=== PATIENT | male | born 1985 ===

== ENCOUNTER 2017-09-15 08:31 | Emergency (ER) | payer BC ==
[2017-09-15] MEDS ORDERED: ONDANSETRON HCL IV 4 MG/2 ML VIAL IVP ONE (08:38)
[2017-09-15] MEDS ORDERED: 0.9 % SODIUM CHLORIDE 1,000 ML BAG IV ONE (08:38)
[2017-09-15] MEDS ORDERED: MORPHINE SULFATE 4MG/ML PREFILLED SYRINGE IVP ONE (08:38)
[2017-09-15] MEDS ORDERED: KETOROLAC 30 MG/ML VIAL IVP ONE (08:38)
--- NOTE | 2017-09-15 08:43 | Emergency Department Record ---
History of Present Illness - General Chief complaint: Flank Pain Stated complaint: POSS KIDNEY STONE Time Seen by Provider: 09/15/17 08:37 Source: Patient Mode of Arrival: Ambulatory Limitations: No limitations - History of Present Illness Initial comments: 32 yo male presents with right flank pain that started about 4am. The pain is sharp. He has associated nausea and vomiting. No definite blood in his urine. He reports a history about 7 years ago f a renal stone. No history of surgery. No fevers. No allergies. He has been recently healthy. MD Complaint: Other (right flank pain) -: Hour(s) (5) Location: Abdomen Radiation: R flank Severity: Moderate Quality: Aching, Sharp Consistency: Constant Improves with: None Worsens with: None Reports: Nausea/vomiting - Related Data Previous Rx's Medication Instructions Recorded Hydrocodone/Acetaminophen [Cabins 1 each PO Q6H #8 tablet 09/15/17 5-325 Tablet] Ondansetron [Zofran Odt] 4 mg PO Q8H #15 tab.rapdis 09/15/17 Allergies Allergy/AdvReac Type Severity Reaction Status Date / Time No Known Drug Allergies Allergy Verified 09/15/17 08:40 Review of Systems Constitutional: Denies: Chills, Fever, Malaise, Weakness Eyes: Denies: Eye discharge ENT: Denies: Congestion, Throat pain Respiratory: Denies: Cough Cardiovascular: Denies: Chest pain, Syncope Gastrointestinal: Reports: As per HPI, Abdominal pain, Nausea, Vomiting. Denies : Diarrhea Genitourinary: Denies: Dysuria, Hematuria, Incontinence, Retention Musculoskeletal: Reports: Back pain. Denies: Arthralgia, Neck pain Skin: Denies: Bruising, Change in color, Rash Neurological: Denies: Headache, Numbness, Weakness Psychiatric: Denies: Anxiety Hematological/Lymphatic: Denies: Blood Clots, Easy bleeding, Easy bruising, Swollen glands Physical Exam - General General Appearance: Alert, Oriented x3, Cooperative, No acute distress Limitations: No limitations - Head Head exam: Atraumatic, Normal inspection - Eye Eye exam: Normal appearance, PERRL Pupils: Normal accommodation - ENT ENT exam: Normal exam, Mucous membranes moist Ear exam: Normal external inspection Nasal Exam: Normal inspection Mouth exam: Normal external inspection - Neck Neck exam: Normal inspection, Full ROM. negative: Tenderness - Respiratory Respiratory exam: Normal lung sounds bilaterally. negative: Respiratory distress - Cardiovascular Cardiovascular Exam: Regular rate, Normal rhythm, Normal heart sounds - GI/Abdominal GI/Abdominal exam: Soft. negative: Tenderness - Rectal Rectal exam: Deferred - exam: Deferred - Extremities Extremities exam: Normal inspection, Full ROM, Normal capillary refill. negative: Pedal edema, Tenderness - Back Back exam: Reports: Normal inspection, Full ROM. Denies: CVA tenderness (R), CVA tenderness (L), Muscle spasm, Rash noted, Tenderness - Neurological Neurological exam: Alert, Normal gait, Oriented X3 - Psychiatric Psychiatric exam: Normal affect, Normal mood - Skin Skin exam: Dry, Intact, Normal color, Warm Course - Reevaluation(s) Reevaluation #1: CT scanner is on operational at this time. This was explained to the patient that he will be sent to B or CT but remain a [facility] patient. 09/15/17 08:42 09/15/17 09:31 The labs were reviewed. No acute changes on the CBC or the BMP. The UA demonstrates RBC's, otherwise negative. 09/15/17 10:[address] scan report was reviewed. The patient has a 4mm distal right ureteral stone at the UVJ. He has an incidental finding of appedicolith. I discussed the possible increased chance of a future appendicitis. We discussed the signs and symptoms of appendicitis. He is now a 0/10 pain scale. We discussed reasons to return to the ED for pain, nausea, fever or any new concerns regarding the renal stone. Medical Decision Making - Lab Data Result diagrams: 09/15/17 08:47 09/15/17 08:47 Disposition Disposition: Discharge Clinical Impression: Renal colic on right side, Appendicolith Disposition: Home, Self-Care Condition: (1) Good Instructions: Renal Colic (ED) Additional Instructions: Strain your urine today Return to the ED if you have uncontrolled pain, vomiting, or any new concerns No driving today after the pain medications As we discussed, you have a small stone in your appendix. If you ever developed abdominal pain, right lower abdominal pain, fever or any new concerns of appendicitis. Prescriptions: Hydrocodone/Acetaminophen [Cabins 5-325 Tablet] 1 each PO Q6H #8 tablet Ondansetron [Zofran Odt] 4 mg PO Q8H #15 tab.rapdis Forms: Patient Portal Access Time of Disposition: 11:01 Quality - Quality Measures Quality Measures: N/A - Blood Pressure Screening Does Patient Have Any of the Following: No Blood Pressure Classification: Normal BP Reading Systolic Measurement: 109 Diastolic Measurement: 76 Screening for High Blood Pressure: < Normal BP, F/U Not Required > [G8783]
[2017-09-15 09:03] LABS: URINE APPEARANCE CLEAR; URINE BILIRUBIN NEGATIVE (NEGATIVE); URINE BLOOD MODERATE (NEGATIVE); URINE COLOR YELLOW; URINE GLUCOSE (UA) NEGATIVE (NEGATIVE); URINE KETONE NEGATIVE (NEGATIVE); URINE LEUKOCYTE ESTERASE NEGATIVE (NEGATIVE); URINE NITRITE NEGATIVE (NEGATIVE); URINE PROTEIN NEGATIVE (NEGATIVE); URINE UROBILINOGEN 0.2 E.U./dL (0.20 - 1.00)
[2017-09-15 09:04] LABS: BASO % 0.2 % (0-6); EOS % 0.8 % (0-6); GRAN % 78.3 % (47-80); HEMATOCRIT 45.2 % (42.0-52.0); HEMOGLOBIN 15.6 gm/dl (14.0-18.0); LYMPH % 13.8 % (16-45); MEAN CELL VOLUME 91.3 fl (81-97); MEAN CORPUSCULAR HEMOGLOBIN 31.5 pg (27-33); MEAN CORPUSCULAR HGB CONC 34.5 g/dl (32-36); MEAN PLATELET VOLUME 10.8 fl (7.4-10.4); MONO % 6.9 % (0-9); PLATELET COUNT 249 K/uL (130-400); RED BLOOD COUNT 4.95 M/uL (4.40-5.70); RED CELL DISTRIBUTION WIDTH 12.7 % (11.5-14.5); WHITE BLOOD COUNT W/O DIFF 9.2 K/uL (4.2-12.2)
[2017-09-15 09:13] LABS: BLOOD UREA NITROGEN 12 mg/dL (6-20); CREATININE 0.9 mg/dL (0.7-1.2); EST GLOMERULAR FILTRATION RATE > 60 mL/min
[2017-09-15 09:16] LABS: GLUCOSE,RANDOM 120 mg/dL (74-109)
[2017-09-15 09:17] LABS: URINE EPITHELIAL CELLS 0 - 2 (FEW); URINE WBC 0 - 2 (0-2/hpf)
[2017-09-15] MEDS ORDERED: ONDANSETRON 4 MG ODT TABLET SL ONE (10:57)
[2017-09-15] MEDS ORDERED: HYDROCODONE/APAP 5/325MG TABLET PO ONE (10:57)
[2017-09-15] MEDS ORDERED: TAMSULOSIN HCL 0.4 MG CAP.ER.24H PO ONE (10:57)
== END 2017-09-15 11:15 | disposition home or self-care (01) ==
LOC: ER 08:31
DX: N13.2 Hydronephrosis with renal and ureteral calculous obstruction (principal); K38.1 Appendicular concretions; R11.2 Nausea with vomiting, unspecified; Z87.442 Personal history of urinary calculi
CPT/HCPCS: 80048; 81001; 85025; 96361; 96374; 96375; 99284; J1885; J2274; J2405; J7030